=== PATIENT | female | born 1960 | race Caucasian/White ===

== ENCOUNTER 2017-02-28 06:55 | Emergency (ER) | payer OTHER ==
[~2017-02-28] VITALS: Ht 167.6 cm; Wt 69.4 kg
--- NOTE | 2017-02-28 07:05 | NUR ---
PT BIBSELF C/O CHEST PAIN RADIATING TO LEFT ARM / TO EARS SINCE 0030 TODAY. PT VISITING FROM ON LICENSE OF [facility] ON [facility] FOR TRAVEL. PT AOX4 RR EVEN AND UNLABORED. NO SOB NOTED. NAD NOTED. NO NVD AT THIS TIME. PT NOT DIAPHORETIC. PT GOWNED AND PLACED ON MONITOR. DR. RODRIGUEZ AT BEDSIDE FOR EVAL.
[2017-02-28] MEDS ORDERED: NITROGLYCERIN 0.4 MG/TAB BOTTLE ONE (07:10)
--- NOTE | 2017-02-28 07:10 | NUR ---
IV STARTED ON RIGHT AC 20G, GOOD BLOOD RETURNED. LABS COLELCTED AND SENT TO LAB.
[2017-02-28] MEDS ORDERED: ASPIRIN 325 MG TABLET ONE (07:11)
[2017-02-28] MEDS ORDERED: MAG HYDROX/AL HYDROX/SIMETH 30 ML UDC ONE (07:16)
[2017-02-28 07:24] LABS: BASOPHILS % (AUTO) 0.5 % (0.0-2.0); EOSINOPHILS % (AUTO) 0.4 % (0.0-6.0); HEMATOCRIT 43 % (33-45); HEMOGLOBIN 14.4 g/dL (11.5-14.8); LYMPHOCYTES # (AUTO) 1.3 /CMM (0.8-4.8); LYMPHOCYTES % (AUTO) 12.8 % (20.0-44.0); MEAN CORPUSCULAR HEMOGLOBIN 29 PG (26.0-33.0); MEAN CORPUSCULAR HGB CONC 34 g/dl (31.0-36.0); MEAN CORPUSCULAR VOLUME 86 fL (82-100); MONOCYTES # (AUTO) 0.7 /CMM (0.1-1.30); MONOCYTES % (AUTO) 6.6 % (2.0-12.0); NEUTROPHILS # (AUTO) 8.1 /CMM (1.8-8.9); NEUTROPHILS % (AUTO) 79.7 % (43.0-81.0); PLATELET COUNT (AUTO) 211 /CMM (150-450); RDW COEFFICIENT OF VARIATION 13.3 (11.5-15.0); RED BLOOD CELL COUNT(AUTO) 5.02 MIL/uL (4.0-5.2); WHITE BLOOD COUNT (AUTO) 10.1 K/uL (4.3-11.0)
--- NOTE | 2017-02-28 07:24 | NUR ---
3rd dose of nitro sl given, per patient, the pain is still the same on the front of her chest, sbp maintained 127/80. continue to monitor.
[2017-02-28] MEDS ORDERED: NITROGLYCERIN 0.4 MG/TAB BOTTLE SL ONE (07:30)
[2017-02-28] MEDS ORDERED: ASPIRIN 325 MG TABLET PO ONE (07:30)
[2017-02-28] MEDS ORDERED: MAG HYDROX/AL HYDROX/SIMETH 30 ML UDC PO ONE (07:30)
--- NOTE | 2017-02-28 07:31 | NUR ---
Endorsed to Cait STAHL for chip.
[2017-02-28 07:37] LABS: CARBON DIOXIDE 26 mmol/L (21-32); CHLORIDE 105 mmol/L (98-107); GLUCOSE 97 mg/dL (74-106); POTASSIUM 4.1 mmol/L (3.5-5.1); SODIUM SERUM 142 mmol/L (136-145); UREA NITROGEN, BLOOD 16 mg/dL (7-18)
[2017-02-28 07:42] LABS: ALANINE AMINOTRANSFERASE 20 U/L (12-78); ALKALINE PHOSPHATASE 86 U/L (46-116); ASPARTATE AMINOTRANSFERASE 17 U/L (15-37); BILIRUBIN,DIRECT 0.2 mg/dL (0.0-0.2); BILIRUBIN,TOTAL 1.2 mg/dL (0.2-1.0); TOTAL PROTEIN, SERUM 7.9 g/dL (6.4-8.2)
[2017-02-28 07:44] LABS: TROPONIN I < 0.017 ng/mL (0.00-0.056)
[2017-02-28 07:51] LABS: D-DIMER 0.19 mg/L(FEU (0.17-0.50); INR 0.97 (0.87-1.13); PROTHROMBIN TIME 10.4 SECS (9.5-12.7)
[2017-02-28 10:05] VITALS: BP 124/80
--- NOTE | 2017-02-28 10:07 | NUR ---
Patient discharged to home in stable condition. Written and verbal after care instructions given. Patient verbalizes understanding of instruction.
== END 2017-02-28 10:07 | disposition home or self-care (01) ==
LOC: ER 06:58
DX: R07.89 Other chest pain (principal)
CPT/HCPCS: 36415; 71010; 80048; 80076; 83690; 84484 ×2; 85025; 85378; 85730; 93005; 99285; A4606; Z7610